=== PATIENT | male | born 1970 | race American Indian/Alaskan Native ===

== ENCOUNTER 2018-04-03 09:40 | Inpatient (IN) | payer OTHER ==
--- NOTE | 2018-04-03 09:58 | Cat Scan Report ---
CT scan of head without IV contrast: History: Stroke symptoms. Findings: Ventricles are normal in size and midline in location. No evidence of acute female, hemorrhage or mass. No extra-axial fluid collection. Normal brainstem and cerebellum. Normal visualized sinuses and mastoid air cells. Impression: No acute intracranial abnormality. Dr. Diane was informed of the findings at 9:51 AM on 04/03/18. [id number]
[2018-04-03] MEDS ORDERED: ASPIRIN PO ONE (10:13)
[2018-04-03 10:16] LABS: Hematocrit 42.2 % (35.5-45.6); Hemoglobin 14.3 gm/dl (11.8-15.2); Mean Corpuscular HGB Conc 34 % (32-34); Mean Corpuscular Hemoglobin 33 pg (28-32); Mean Corpuscular Volume 97 fl (84-94); Platelet Count 150 K/mm3 (140-440); Red Blood Count 4.35 M/mm3 (3.65-5.03)
[2018-04-03 10:27] LABS: INR 0.95 (0.87-1.13)
[2018-04-03 10:28] LABS: Partial Thromboplastin Time 26.4 Sec. (24.2-36.6)
[2018-04-03 10:56] LABS: Thrombin Time 15.9 Sec. (15.1-19.6)
[2018-04-03 11:07] LABS: Amphetamine Screen,Urine PRESUMPTIVE NEGATIVE; Benzodiazepines Screen,Urine PRESUMPTIVE NEGATIVE; Cannabinoid Screen,Urine PRESUMPTIVE NEGATIVE; Cocaine Screen,Urine PRESUMPTIVE NEGATIVE; Methadone Screen,Urine PRESUMPTIVE NEGATIVE; Opiate Screen,Urine PRESUMPTIVE NEGATIVE
[2018-04-03 11:24] LABS: Creatine Kinase MB 2.3 ng/mL (0.0-4.0)
[2018-04-03 11:26] LABS: Alanine Aminotransferase 12 units/L (7-56); Albumin 4.3 g/dL (3.9-5); BUN/Creatinine Ratio 9; Blood Urea Nitrogen 8 mg/dL (9-20); Hemolysis Index 6
--- NOTE | 2018-04-03 11:31 | History and Physical Report ---
History of Present Illness Chief complaint: My right arm is weak History of present illness: 47 YO Male with HTN, Nicotine Dependence, CVA presents to ED for evaluation. Pt states that he experienced weakness in his right arm when he awoke today around 1500hrs. Pt states that he was in his normal state of health at 2000hrs on the night prior to presentation to [facility]. Pt states that he noticed that as he was walking to the bathroom he was having difficulty moving his right upper extremity. 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 Patient went back to bed for several hours, but then decided something didn't feel right and decided to come to the emergency department. Pt seen and evaluated in ED and found to have symptoms of acute CVA. Pt outside therapeutic window for TPA. Pt denies fever, chills, CP, Palpitations, Trauma, Headache, vision loss, NVD, vertigo, seizure, or recent ill contacts. Pt admitted to telemetry. Past History Past Medical History: hypertension, stroke Past Surgical History: No surgical history, Other (reviewed) Social history: single, smoking Family history: hypertension Medications and Allergies Allergies Allergy/AdvReac Type Severity Reaction Status Date / Time No Known Allergies Allergy Unverified 04/03/18 09:42 Home Medications Medication Instructions Recorded Confirmed Last Taken Type Multivit-Minerals/FA/Lycopene [One 1 each PO DAILY 04/03/18 04/03/18 04/02/18 History Daily Ichiba Tablet] Review of Systems Constitutional: no weight loss, no weight gain, no fever, no chills Ears, nose, mouth and throat: no ear pain, no ear discharge, no tinnitis, no decreased hearing, no nose pain, no nasal congestion Cardiovascular: no chest pain, no orthopnea, no palpitations, no rapid/ irregular heart beat, no edema Respiratory: no cough, no cough with sputum, no hemoptysis, no shortness of breath Gastrointestinal: no nausea, no vomiting, no diarrhea Genitourinary Male: no hematuria, no flank pain, no discharge, no urinary frequency, no urinary hesitancy Rectal: no pain, no incontinence, no bleeding Musculoskeletal: no neck stiffness, no neck pain, no shooting arm pain Integumentary: no rash, no pruritis, no redness, no sores, no wounds Neurological: weakness, no head injury, no transient paralysis, no tingling, no seizures, no syncope, no tremors Psychiatric: no anxiety, no memory loss, no change in sleep habits, no sleep disturbances, no insomnia, no hypersomnia, no change in appetite Endocrine: no cold intolerance, no heat intolerance, no polyphagia, no excessive thirst, no polydipsia, no polyuria Hematologic/Lymphatic: no easy bruising, no easy bleeding, no lymphadenopathy, no lymphedema Allergic/Immunologic: no urticaria, no allergic rhinitis, no wheezing, no persistent infections, no anaphylaxis Exam - Constitutional Vitals: Temp Pulse Resp BP Pulse Ox 98.1 F 94 H 11 L 135/99 99 04/03/18 10:48 04/03/18 10:48 04/03/18 10:48 04/03/18 10:48 04/03/18 10:48 General appearance: Present: mild distress - EENT Eyes: Present: PERRL ENT: hearing intact, clear oral mucosa - Neck Neck: Present: supple, normal ROM - Respiratory Respiratory effort: normal Respiratory: bilateral: CTA - Cardiovascular Heart Sounds: Present: S1 & S2. Absent: rub, click - Extremities Extremities: pulses symmetrical, No edema Peripheral Pulses: within normal limits - Abdominal General gastrointestinal: Present: soft, non-tender, non-distended, normal bowel sounds Male genitourinary: Present: normal - Rectal Rectal Exam: normal rectal tone - Integumentary Integumentary: Present: clear, warm, dry - Musculoskeletal Musculoskeletal: right sided weakness - Psychiatric Psychiatric: appropriate mood/affect, intact judgment & insight - Neurologic Neurologic: CNII-XII intact, moves all extremities Results - Labs CBC & Chem 7: 04/03/18 09:56 04/03/18 09:56 Labs: Abnormal lab results 04/03/18 04/03/18 Range/Units 09:56 09:56 WBC 4.4 L (4.5-11.0) K/mm3 MCV 97 H (84-94) fl MCH 33 H (28-32) pg RDW 13.0 L (13.2-15.2) % BUN 8 L (9-20) mg/dL Total Creatine Kinase 228 H (55-170) units/L Assessment and Plan - Patient Problems (1) CVA (cerebral vascular accident) Current Visit: Yes Status: Acute Qualifiers: Precerebral and cerebral artery: middle cerebral artery Laterality of affected vessel: left Plan to address problem: Stroke Ptotocol: CT Head, MRI Brain, MRA Brain, Echo, Carotid Doppler, PT/OT/ Speech therapy, Anti platelet therapy, lipid panel, EEG. (2) HTN (hypertension) Current Visit: Yes Status: Acute Qualifiers: Hypertension type: essential hypertension Qualified Code(s): I10 - Essential (primary) hypertension Plan to address problem: Monitor bp q shift, permissive hypertension overnight. (3) Nicotine dependence Current Visit: Yes Status: Acute Qualifiers: Substance use status: in withdrawal Plan to address problem: supportive care, smoking cessation counseling, Pt declined to pick quit date at this time. (4) Noncompliance Current Visit: Yes Status: Acute Plan to address problem: Pt counseled. (5) EtOH dependence Current Visit: Yes Status: Acute Qualifiers: Complication of substance-induced condition: with unspecified complication Plan to address problem: Thiamine, Folic acid, multivitamin, CIWA protocol. Pt intoxicated at time of admission. (6) DVT prophylaxis Current Visit: Yes Status: Acute Plan to address problem: SCD to BLE
[2018-04-03] MEDS ORDERED: TYLENOL PO PRN (11:32)
[2018-04-03] MEDS ORDERED: ZOFRAN IV PRN (11:32)
[2018-04-03] MEDS ORDERED: MILK OF MAGNESIA PO PRN (11:32)
[2018-04-03] MEDS ORDERED: PHENERGAN PR PRN (11:32)
[2018-04-03] MEDS ORDERED: REGLAN PO PRN (11:32)
[2018-04-03] MEDS ORDERED: SODIUM CHLORIDE FLUSH SYRINGE 10 ML IV PRN (11:32)
[2018-04-03] MEDS ORDERED: DULCOLAX PR PRN (11:32)
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
[2018-04-03 11:47] LABS: Basophils % (Manual) 0 % (0.0-1.8); Hypochromasia 1+; Platelet Estimate Consistent w Auto; Total Cells Counted 100
[2018-04-03 11:48] LABS: Stomatocytes Few
--- NOTE | 2018-04-03 17:34 | Magnetic Resonance Report ---
FINAL REPORT PROCEDURE: MR BRAIN WO CON TECHNIQUE: Magnetic resonance imaging of the brain was performed without contrast material. HISTORY: stroke COMPARISON: No prior studies are available for comparison. FINDINGS: The signal intensity from the substance of the brain appears normal. Normal jansen-white matter differentiation is seen. Ventricles are normal size and are midline. No abnormal extra-axial fluid collections or masses are seen. No abnormal areas restricted diffusion are seen that would suggest an acute ischemic event. Corpus callosum region of the pituitary fossa and foramen magnum are unremarkable. Minimal mucosal thickening seen in a few of the ethmoid air cells and minimally posteriorly in the right and left maxillary sinuses. The paranasal sinuses otherwise are clear. Mastoid air cells are clear. IMPRESSION: Negative exam. No acute or focal abnormalities are seen.
--- NOTE | 2018-04-03 17:37 | Magnetic Resonance Report ---
FINAL REPORT PROCEDURE: MR MRA/MRV HEAD WO CON TECHNIQUE: Axial 3-D [id number] MR angiography of the [place] and brain was performed. The source images were reconstructed in various views using maximum intensity projection. HISTORY: stroke COMPARISON: No prior studies are available for comparison. FINDINGS: Visualize right and left vertebral arteries appear widely patent. The basilar artery also appears widely patent. There is persistent circulation of the left posterior cerebral artery which otherwise is widely patent, this is normal variant. Right posterior cerebral artery also widely patent. Visualized portions of the internal carotid arteries appear widely patent. The carotid siphons, A1 segments and anterior cerebral arteries are widely patent. The left A1 segment is larger than the right which appears to be a normal variant. Right and left middle cerebral arteries show no focal abnormalities. No occlusion or significant stenosis visualized. No changes are seen that would suggest aneurysm or vascular malformation. IMPRESSION: Anterior and the posterior circulation appear intact. No focal abnormalities are seen with the exception of normal variants..
[2018-04-03] MEDS ORDERED: PRAVACHOL PO SCH (22:00)
[2018-04-04] MEDS ORDERED: ATIVAN IV PRN (06:05)
[2018-04-04] MEDS ORDERED: FOLVITE PO SCH (07:00)
[2018-04-04] MEDS ORDERED: THERAGRAN Tab PO SCH (07:00)
[2018-04-04] MEDS ORDERED: VITAMIN B-1 PO SCH (07:00)
[2018-04-04 07:51] LABS: Chol/HDL Ratio 2.43 %
[2018-04-04] MEDS ORDERED: ASPIRIN PO SCH (10:00)
[2018-04-04] MEDS ORDERED: PLAVIX PO SCH (10:00)
--- NOTE | 2018-04-04 11:21 | Discharge Summary ---
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 Disposition: DC-01 TO HOME OR SELFCARE Time spent for discharge: 35 mins Exam - Constitutional Vitals: Temp Pulse Resp BP Pulse Ox 98.2 F 80 18 137/91 97 04/04/18 08:23 04/04/18 08:23 04/04/18 08:23 04/04/18 08:23 04/04/18 08:23 Plan Activity: advance as tolerated, fall precautions Special Instructions: record blood sugar diary, smoking cessation, other (etoh cessation) Follow up with: PRIMARY CARE, [Primary Care Provider] - 3-5 Days Forms: Work/School Release Form Prescriptions: Pravastatin [Pravachol] 80 mg PO QHS #30 tablet Folic Acid [Folvite] 1 mg PO QDAY #30 tablet Nicotine [Habitrol] 14 mg TD DAILY #30 patch Thiamine [Vitamin B-1] 100 mg PO QDAY #30 tablet
[2018-04-04 11:55] VITALS: BP 138/95
== END 2018-04-04 13:15 | disposition home or self-care (01) | DRG 74 ==
LOC: ED 09:40 → 4A 11:32
PROVIDERS: ADMIT Internal Medicine; ATTEND Internal Medicine
DX: G62.1 Alcoholic polyneuropathy (principal); I10 Essential (primary) hypertension; F17.200 Nicotine dependence, unspecified, uncomplicated; Z82.49 Family history of ischemic heart disease and other diseases of the circulatory system; Z86.73 Personal history of transient ischemic attack (TIA), and cerebral infarction without residual deficits; Z91.19 Patient's noncompliance with other medical treatment and regimen
CPT/HCPCS: 36415; 70450; 70544; 70551; 80053; 80061; 80307; 80320; 82550; 82553; 84484; 85007; 85025; 85610; 85670; 85730; 93005; 93010; 93306; 95819; A9270-GY; G0480